=== PATIENT | male | born 1990 | race Caucasian/White ===

== ENCOUNTER 2017-05-05 14:29 | Emergency (ER) | payer OTHER ==
[~2017-05-05] VITALS: Ht 182.9 cm; Wt 85.3 kg
[2017-05-05 14:34] VITALS: Ht 182.9 cm; Wt 85.3 kg
[2017-05-05 15:40] VITALS: BP 133/80
== END 2017-05-05 15:41 | disposition home or self-care (01) ==
LOC: ED 14:29
DX: S61.233A Puncture wound without foreign body of left middle finger without damage to nail, initial encounter (principal); W26.8XXA Contact with other sharp object(s), not elsewhere classified, initial encounter; Y93.89 Activity, other specified; Y92.89 Other specified places as the place of occurrence of the external cause; Y99.8 Other external cause status